=== PATIENT | female | born 1975 | race Caucasian/White ===

== ENCOUNTER 2017-11-03 23:18 | Inpatient (IN) | payer OTHER, MEDICAID ==
[~2017-11-03] VITALS: Ht 167.6 cm; Wt 77.1 kg
[2017-11-03 22:30] VITALS: O2SAT 99
[~2017-11-03 23:18] MED LIST: MACR100C PO; METH40TA9 PO
[2017-11-03 23:20] VITALS: BP 156/74; PULSE 127; RESP 26; TEMP 97.8; O2SAT 98
[2017-11-03] MEDS ORDERED: PROPOFOL 500 MG/50 ML INJ 50 ML ONE (23:22)
[2017-11-04] VITALS (7 sets, daily range): BP systolic 105–128; BP diastolic 63–73; PULSE 78–97; RESP 14–18; TEMP 97.4–98.7; O2SAT 95–100
--- NOTE | 2017-11-04 00:06 | RADRPT ---
EXAM DATE/TIME: 11/03/2017 23:26 [facility] COMPARISON: No previous studies available for comparison. INDICATIONS : SENIOR LIVING, ankle pain. MEDICAL HISTORY : None. SURGICAL HISTORY : None. ENCOUNTER: Initial ACUITY: 1 day PAIN SCORE: 10/10 LOCATION: Right ankle FINDINGS: Single lateral view demonstrates fracture at the level of the ankle probably involving the posterior malleolus, however the exact extent or involvement of the other bones is difficult to evaluate. CONCLUSION: Fracture identified and not fully evaluated. Angelo Suarez MD on November 04, 2017 at 0:04 Board Certified Radiologist. This report was verified electronically.
--- NOTE | 2017-11-04 00:37 | RADRPT ---
EXAM DATE/TIME: 11/04/2017 00:06 [facility] COMPARISON: No previous studies available for comparison. INDICATIONS : Short of breath. MEDICAL HISTORY : None. SURGICAL HISTORY : None. ENCOUNTER: Initial ACUITY: 1 day PAIN SCORE: 0/10 LOCATION: Bilateral chest FINDINGS: The lungs are clear without infiltrate, nodule, or mass. There is no appreciable pleural effusion fo r technique. Heart and mediastinum are unremarkable. CONCLUSION: No acute cardiopulmonary disease. Angelo Suarez MD on November 04, 2017 at 0:35 Board Certified Radiologist. This report was verified electronically.
--- NOTE | 2017-11-04 00:38 | RADRPT ---
EXAM DATE/TIME: 11/04/2017 00:08 [facility] COMPARISON: No previous studies available for comparison. INDICATIONS : Post reduction. MEDICAL HISTORY : None. SURGICAL HISTORY : None. ENCOUNTER: Initial ACUITY: 1 day PAIN SCORE: 10/10 LOCATION: Right ankle FINDINGS: There are complete fractures of the medial and lateral malleolus with widening of the tibiotalar join t and narrowing of the talofibular joint. The ankle mortise is disrupted. CONCLUSION: Fractures and disruption of the ankle mortise. Angelo Suarez MD on November 04, 2017 at 0:35 Board Certified Radiologist. This report was verified electronically.
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
[2017-11-04 00:59] LABS: ALKALINE PHOSPHATASE 96 U/L (45-117); TOTAL BILIRUBIN ADULT 0.4 MG/DL (0.2-1.0); TOTAL PROTEIN 7.5 GM/DL (6.4-8.2)
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
[2017-11-04 01:02] LABS: ALBUMIN 3.7 GM/DL (3.4-5.0); ALT (GPT) 83 U/L (10-53); AST (GOT) 88 U/L (15-37); BICARBONATE 28.2 MEQ/L (21.0-32.0); BLOOD UREA NITROGEN 11 MG/DL (7-18); CHLORIDE 107 MEQ/L (98-107); CREATININE 0.78 MG/DL (0.50-1.00); GLOMERULAR FILTRATION RATE 81 ML/MIN (>89); GLUCOSE,RANDOM 85 MG/DL (74-106); SODIUM (NA) 140 MEQ/L (136-145)
[2017-11-04] MEDS ORDERED: HYDROmorphone HCL PF 2 MG/ML VIAL IV PUSH ONE (01:15)
[2017-11-04 01:18] LABS: AUTOMATED NEUTROPHIL # 7.7 TH/MM3 (1.8-7.7); BASOPHIL # 0.2 TH/MM3 (0-0.2); BASOPHIL % 1.4 % (0.0-2.0); EOSINOPHIL # 0.1 TH/MM3 (0-0.4); EOSINOPHIL % 1.2 % (0.0-4.0); HEMATOCRIT 42.9 % (35.0-46.0); HEMOGLOBIN 14.4 GM/DL (11.6-15.3); LYMPHOCYTE # 2.5 TH/MM3 (1.0-4.8); MEAN CELL VOLUME 90.1 FL (80.0-100.0); MEAN CORPUSCULAR HEMOGLOBIN 30.3 PG (27.0-34.0); MEAN CORPUSCULAR HGB CONC 33.7 % (32.0-36.0); MEAN PLATELET VOLUME 10.6 FL (7.0-11.0); MONO % 5.9 % (0.0-8.0); MONOCYTE # 0.7 TH/MM3 (0-0.9); NEUT % 69.5 % (16.0-70.0); PLATELET COUNT 161 TH/MM3 (150-450); RED BLOOD COUNT 4.76 MIL/MM3 (4.00-5.30); RED CELL DISTRIBUTION WIDTH 12.7 % (11.6-17.2); WHITE BLOOD COUNT 11.2 TH/MM3 (4.0-11.0)
[2017-11-04] MEDS ORDERED: KETAMINE HCL 500 MG/5 ML VIAL IV PUSH ONE (01:30)
[2017-11-04] MEDS ORDERED: ONDANSETRON HCL 4 MG/2 ML VIAL IV PUSH PRN (03:00)
[2017-11-04] MEDS ORDERED: HYDROmorphone HCL PF 2 MG/ML VIAL IVS PRN (03:00)
[2017-11-04] MEDS ORDERED: SODIUM CHLOR 0.9% 1000 ML INJ 1,000 ML IV SCH (03:00)
[2017-11-04] MEDS ORDERED: METH40TA PO (03:23)
[2017-11-04] MEDS ORDERED: GENTAMICIN SULFATE 80 MG/2 ML VIAL ONE (07:57)
[2017-11-04] MEDS ORDERED: ceFAZolin INJ 1,000 MG VIAL ONE (08:12)
[2017-11-04] MEDS ORDERED: BUPIVACAINE HCL PF 0.5% 30 ML VIAL ONE (09:24)
[2017-11-04] MEDS ORDERED: ceFAZolin INJ 1,000 MG VIAL IV ONE ×2 (10:13→12:00)
[2017-11-04] MEDS ORDERED: BUPIVACAINE/EPINEPHRINE 0.25% PF 30 ML VIAL ONE (10:25)
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
[2017-11-04] MEDS ORDERED: oxyCODONE/ACETAMINOPHEN 5 MG/325 MG TAB PO PRN ×2 (11:00)
[2017-11-04] MEDS ORDERED: NALOXONE HCL 0.4 MG/ML AMP IV PUSH PRN (11:00)
[2017-11-04] MEDS ORDERED: MORPHINE SULFATE 30 MG/30 ML PCA IV SCH (11:00)
[2017-11-04] MEDS ORDERED: MAGNESIUM HYDROXIDE SUSP 30 ML CUP PO PRN (11:00)
[2017-11-04] MEDS ORDERED: DO NOT ADM ANY ANTICOAGULANT DRUGS PRN ×2 (11:00→12:30)
[2017-11-04] MEDS ORDERED: ONDANSETRON HCL 4 MG/2 ML VIAL IVP PRN (11:00)
[2017-11-04] MEDS ORDERED: diphenhydrAMINE HCL 25 MG CAP PO PRN (11:00)
--- NOTE | 2017-11-04 11:02 | PD.OP ---
cc: Gerry Escalona MD Operative Report Date of Surgery: Nov 04, 2017 Preoperative Diagnosis: Right ankle bimalleolar fracture Postoperative Diagnosis: Same Procedure: Open treatment internal fixation right ankle fracture with plates and screws Anesthesia: Gen. Surgeon: Gerry Escalona Crayon Molding Machine Operator(s): RUSTY Rodrigues Operation and Findings: EBL: 25 cc INDICATION: Patient is a 41-year-old female with an injury to the right ankle. She had evidence of a fracture subluxation of the right ankle. She now presents for surgical treatment because of an unstable right ankle fracture NOTE: Kellie Rodrigues PA-C was present for the entire surgical procedure as my child and youth program assistant. In my medical opinion her skill and care was necessary for the proper management of this patient. PROCEDURE: The patient brought to the operating room and anesthetized in the supine position. The right leg was visualized under fluoroscopy. Antibiotics were given within an one hour time window and a timeout was done. The lateral side was approached. After exsanguination the tourniquet was inflated to 250 mmHg. A longitudinal incision was made. The fracture was exposed. Multiple clamps used to hold this in proper position. A proper length ITS locking plate was positioned and held. Multiple screws were placed as well as a lag screw. Overall alignment was satisfactory case was noted. The wound was closed in layers with 2-0 Vicryl 3-0 Vicryl and 3-0 nylon mattress sutures. A medial incision was made. A clamp was used to hold the medial malleolus and anatomic alignment. A cannulated screw system was utilized. 2 pins were placed in good fashion and position. There measured carefully. They were drilled and the proper length screws were advanced across the wire across the fracture. The fracture was reduced anatomically. The wound was closed with 3- 0 nylon in a mattress fashion The wound was irrigated copiously and hemostasis was controlled. Intraoperative imaging showed anatomic reduction. Alignment was satisfactory. A posterior splint was fitted and applied. The patient was awakened and taken to recovery room satisfactory condition. The sponge count and needle count and sponge counts were all correct FINDINGS: There was an unstable ankle fracture. The lateral malleolus was very comminuted. A lag screw would have been inappropriate because there was not a significant fracture to lag. The medial fragment was moderately unstable. The final fixation appeared be very satisfactory Gerry Escalona MD Nov 04, 2017 11:02
[2017-11-04] MEDS ORDERED: Post-op Orders (for Pharmacy) XX ONE (11:19)
[2017-11-04] MEDS ORDERED: *MEPERIDINE 25 MG INJ VIAL PERIprocedural Use ONLY ONE (11:25)
[2017-11-04] MEDS ORDERED: *morphine SULFATE 4 MG/ML PERIprocedure ONLY ONE (11:40)
[2017-11-04] MEDS ORDERED: LIDOCAINE HCL 1% PF 5 ML SYRINGE OTHER ONE (12:00)
[2017-11-04] MEDS ORDERED: GLYCOPYRROLATE 1 MG/5 ML SYRINGE IV PUSH ONE (12:00)
[2017-11-04] MEDS ORDERED: ONDANSETRON HCL 4 MG/2 ML VIAL IV PUSH ONE (12:00)
[2017-11-04] MEDS ORDERED: DEXAMETHASONE SOD PHOS 4 MG/ML VIAL IV ONE (12:00)
[2017-11-04] MEDS ORDERED: NEOSTIGMINE 5 MG/5 ML SYRINGE IV PUSH ONE (12:00)
[2017-11-04] MEDS ORDERED: KETOROLAC TROMETHAMINE 30 MG/ML (IVP) VIAL IV PUSH ONE (12:00)
[2017-11-04] MEDS ORDERED: PROPOFOL 200 MG/20 ML AMP IV ONE (12:00)
[2017-11-04] MEDS ORDERED: ROCURONIUM INJ 50 MG/5 ML SYRINGE IV PUSH ONE (12:00)
[2017-11-04] MEDS: LACTATED RINGER'S 1000 ML INJ 1,000 ML IV SCH ×2 (12:40→12:43)
[2017-11-04] MEDS: CALCIUM/VITAMIN D 250 MG/125 U TAB PO SCH ×2 (12:43→16:52)
[2017-11-04] MEDS: PCA - TOTAL MG MORPHINE DELIVERED PER SHIFT SCH ×2 (12:43→19:26)
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
[2017-11-04] MEDS ORDERED: MORPHINE SULFATE 2 MG/ML INJ IV PUSH PRN (14:15)
--- NOTE | 2017-11-04 16:33 | RADRPT ---
EXAM DATE/TIME: 11/04/2017 10:45 [place] COMPARISON: ANKLE RIGHT LIMITED (AP&LAT), November 04, 2017, 0:08. INDICATIONS : Right ankle fracture repair. OR. MEDICAL HISTORY : None. SURGICAL HISTORY : Cholecystectomy. ENCOUNTER: Initial ACUITY: 1 day PAIN SCORE: Non-responsive. LOCATION: Right ankle FINDINGS: 2 fluoroscopic images are provided. Interval plate and screw fixation of the lateral malleolus with c ompression screw fixation of the medial malleolus. Hardware appears intact and well-positioned. No ad ditional acute fractures are identified. There is near-anatomic alignment. CONCLUSION: 1. Status post right ankle ORIF, as above. Bertin No MD on November 04, 2017 at 16:30 Board Certified Radiologist. This report was verified electronically.
[2017-11-04] MEDS: METHADONE HCL 10 MG TAB PO SCH (16:52)
[2017-11-04] MEDS: DOCUSATE SODIUM 50 MG/SENNA 8.6 MG TAB PO SCH (19:26)
[2017-11-04] MEDS: ASPIRIN 81 MG CHEW TAB CHEW SCH (19:26)
[2017-11-05] VITALS (7 sets, daily range): BP systolic 102–133; BP diastolic 63–71; PULSE 64–89; RESP 16–18; TEMP 96.5–98.2; O2SAT 94–100
[2017-11-05] MEDS: METHADONE HCL 10 MG TAB PO SCH ×2 (04:46→14:53)
[2017-11-05] MEDS: PCA - TOTAL MG MORPHINE DELIVERED PER SHIFT SCH ×3 (06:00→19:55)
[2017-11-05] MEDS: LACTATED RINGER'S 1000 ML INJ 1,000 ML IV SCH ×3 (08:00→19:56)
[2017-11-05] MEDS: DOCUSATE SODIUM 50 MG/SENNA 8.6 MG TAB PO SCH ×2 (09:28→19:52)
[2017-11-05] MEDS: MULTIVITAMINS/MINERALS THERAPEUTIC TAB PO SCH (09:28)
[2017-11-05] MEDS: ASPIRIN 81 MG CHEW TAB CHEW SCH ×2 (10:30→19:52)
[2017-11-05] MEDS: CALCIUM/VITAMIN D 250 MG/125 U TAB PO SCH ×3 (10:30→18:10)
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
[2017-11-05] MEDS: oxyCODONE/ACETAMINOPHEN 10 MG/325 MG TAB PO PRN ×2 (11:39→23:59)
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
[2017-11-06] MEDS: METHADONE HCL 10 MG TAB PO SCH (05:24)
[2017-11-06] MEDS: PCA - TOTAL MG MORPHINE DELIVERED PER SHIFT SCH (05:24)
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
[2017-11-06] MEDS ORDERED: ASPI81 CHEW (06:42)
[2017-11-06 08:00] VITALS: BP 122/77; PULSE 77; RESP 16; O2SAT 97
[2017-11-06] MEDS: MULTIVITAMINS/MINERALS THERAPEUTIC TAB PO SCH (08:53)
[2017-11-06] MEDS: CALCIUM/VITAMIN D 250 MG/125 U TAB PO SCH (08:53)
[2017-11-06] MEDS: DOCUSATE SODIUM 50 MG/SENNA 8.6 MG TAB PO SCH (08:53)
[2017-11-06] MEDS: ASPIRIN 81 MG CHEW TAB CHEW SCH (08:53)
[2017-11-06] MEDS: oxyCODONE/ACETAMINOPHEN 10 MG/325 MG TAB PO PRN (08:58)
[2017-11-06] MEDS ORDERED: OXYC1TAB36 PO (10:23)
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
== END 2017-11-06 11:04 | disposition home or self-care (01) | DRG 494 ==
LOC: NEPE 23:18 → NEDA 11-04 02:58 → N06A 11-04 04:30
PROVIDERS: ADMIT Orthopaedic Surgery; ATTEND Orthopaedic Surgery
PROC: 0QSH04Z Reposition Left Tibia with Internal Fixation Device, Open Approach (ICD-10-PCS; 2017-11-04)
PROC: 0QSGXZZ Reposition Right Tibia, External Approach (ICD-10-PCS; 2017-11-04)
PROC: 0QSJ04Z Reposition Right Fibula with Internal Fixation Device, Open Approach (ICD-10-PCS; principal; 2017-11-04 09:15)
DX: S82.841A Displaced bimalleolar fracture of right lower leg, initial encounter for closed fracture (principal); B19.20 Unspecified viral hepatitis C without hepatic coma; S93.01XA Subluxation of right ankle joint, initial encounter; S00.81XA Abrasion of other part of head, initial encounter; V43.52XA Car driver injured in collision with other type car in traffic accident, initial encounter; Y92.410 Unspecified street and highway as the place of occurrence of the external cause; Z72.0 Tobacco use; Z79.891 Long term (current) use of opiate analgesic; Z91.013 Allergy to seafood
CPT/HCPCS: 27810; 70450; 71010; 73600; 76000; 80053; 85025; 94150; 96374; 99152; 99153; C1713; J0690; J1100; J1170; J1580; J1885; J2175; J2270; J2405; J2710; J7030; J7120